=== PATIENT | female | born 1985 | race Two or more races ===

== ENCOUNTER → 2016-07-03 | Outpatient (CLI) | payer OTHER ==
--- NOTE | 2016-07-03 11:58 | XR ---
EXAMINATION TYPE: XR lumbar spine 2 or 3V DATE OF EXAM: 07/03/2016 11:54 AM CLINICAL HISTORY: Lifting injury with pain. TECHNIQUE: Frontal and lateral images of the lumbar spine are obtained. COMPARISON: None FINDINGS: There are 5 lumbar type vertebral bodies identified. The lumbar spine shows straightened alignment without evidence of acute fracture or dislocation. Vertebral body heights and disk space he ights are within normal limits. Cholecystectomy clips are noted in overlying soft tissue. IMPRESSION: No acute fracture or dislocation is seen in the lumbar spine.
--- NOTE | 2016-07-03 11:58 | XR ---
EXAMINATION TYPE: XR Hip Complete RT DATE OF EXAM ORDERED: 07/03/2016 11:54 AM HISTORY: S39.012A low back strain. COMPARISON: None. FINDINGS: The right femoral head is nonspherical. There is a small "bump" on the femoral head. There is no fracture or dislocation or other acute osseous lesion. IMPRESSION: PLEASE CORRELATE CLINICALLY FOR FEMOROACETABULAR IMPINGEMENT SYNDROME IMPINGEMENT SYNDROME.
== END | disposition home or self-care (01) ==
LOC: RADXRMAIN 11:23
PROVIDERS: ATTEND Emergency Medicine
DX: S39.012A Strain of muscle, fascia and tendon of lower back, initial encounter (principal)
CPT/HCPCS: 72100; 73502